=== PATIENT | female | born 1985 | race Two or more races ===

== ENCOUNTER 2016-05-13 07:15 | Inpatient (IN) | payer OTHER ==
--- NOTE | 2016-05-12 16:48 | PDOC1 ---
- HPI 30 year old at 40w+0d gestational age by LMP, confirmed with 8-week ultrasound who desires repeat LTCS for means of delivery due to history of prior LTCS. Patient also desires permanent sterlization by bilateral tubal ligation. She presents for assessment and review of history in anticipation of her upcoming surgery. Today patient denies any changes in health. Her course has been followed for the following problem list. Previous c/s x 1 (02/2015) for HSV lesions at term desires elective repeat c/s + BTL h/o HSV - on prophylaxis currently, no active HSV lesions h/o GDM - 1hr gtt high but 3hr gtt wnl this SOCIAL HISTORY: denies any alcohol, drugs, or tobacco use Allergies/Adverse Reactions: Allergies No Known Allergies Allergy (Verified 03/08/15 19:27) - Labs & Studies LABS: A-POS, AB NEG rubella immune HepB - neg HIV - neg RPR - neg 1hr gtt - 151, 3hr gtt wnl gbs negative REVIEW OF DATES: pt had 8w and 22w u/s which are c/w beni 05/20/16 - Physical Exam General: Afebrile, No Acute Distress Lungs: Clear to Auscultation Bilaterally Cardiovascular: Regular Rate and Rhythm Abdomen: Other (efw = 3500g), No Tenderness Genitourinary: Normal Female Genitalia, Other (no active lesions) - Assessment & Plan 30yo at term for elective repeat c/s + BTL Discussed with patient the risks of including infection, bleeding possibly requiring blood transfusion and even hysterectomy, damage to underlying structures including bowel, bladder, uterus, tubes, ovaries, baby, and ureter, as well as will have a scar and can have persistent pain and numbness at incision site. TheRisks of BTL including risk of regret, , and ectopic discussed. patient agrees to proceed with LTCS and BTL and will arrive at scheduled time for preop. She was advised to avoid any food or drink 8 hours prior to scheduled surgery.
[2016-05-13] MEDS ORDERED: LACTATED RINGERS 1,000 ML IV.SOLN ONE (07:16)
[2016-05-13] MEDS ORDERED: CEFAZOLIN SODIUM 2 GRAM DUPLEX 2 G in Premix (D5W) 50 ml 1 EACH IV PRN (07:17)
[2016-05-13] MEDS ORDERED: LACTATED RINGERS 1,000 ML IV SCH (07:30)
[2016-05-13] MEDS ORDERED: IV START KIT ONE (07:38)
[2016-05-13] MEDS ORDERED: LACTATED RINGERS 1,000 ML ONE (07:38)
[2016-05-13 08:20] LABS: HEMATOCRIT 38.4 % (37.0-47.0); HEMOGLOBIN 13.1 gm/l (12.0-16.0); MEAN CELL VOLUME 89.9 fl (81.0-99.0); MEAN CORPUSCULAR HEMOGLOBIN 30.7 pg (27.0-31.0); MEAN CORPUSCULAR HGB CONC 34.1 g/dl (33.0-37.0); RED CELL DISTRIBUTION WIDTH 13.6 % (11.5-14.5)
[2016-05-13 08:26] VITALS: BMI 40.9
[2016-05-13] MEDS ORDERED: CEFAZOLIN SODIUM 2 GRAM DUPLEX 50 ML IV ONE (08:41)
[2016-05-13] MEDS ORDERED: FENTANYL 100 MCG/2 ML VIAL ONE (09:34)
[2016-05-13] MEDS ORDERED: OXYTOCIN 10 UNITS/ML VIAL ONE (09:34)
[2016-05-13] MEDS ORDERED: EPHEDRINE SULFATE UD SYR 25 MG 25 MG/5 ML SYRINGE IV ONE (09:34)
[2016-05-13] MEDS ORDERED: MORPHINE SULFATE (DURAMORPH) 1 MG/ML 10ML AMP ONE (09:34)
[2016-05-13] MEDS ORDERED: SPINAL PROCEDURAL TRAY 1 EACH ONE (09:43)
[2016-05-13] MEDS ORDERED: BUPIVACAINE 0.75% SPINAL AMPUL 2 ML ONE (09:45)
[2016-05-13] MEDS ORDERED: DIPHENHYDRAMINE HCL 50 MG/1 ML VIAL IV PRN ×2 (10:00→11:08)
[2016-05-13] MEDS ORDERED: ONDANSETRON 4 MG/2ML 2 ML VIAL IV PRN ×2 (10:00→11:08)
[2016-05-13] MEDS ORDERED: MORPHINE SULFATE 2 MG/ML SYRINGE IV PRN (10:00)
[2016-05-13] MEDS ORDERED: MORPHINE SULFATE 10 MG/ML SYRINGE IV PRN (10:00)
[2016-05-13] MEDS ORDERED: EPHEDRINE SULFATE 50 MG/ML 1ML VIAL IV PRN (10:00)
[2016-05-13] MEDS ORDERED: NALOXONE HCL 0.4 MG/ML VIAL IV PRN (10:00)
[2016-05-13] MEDS ORDERED: HYDROMORPHONE HCL 1 MG/ML SYRINGE IV PRN (10:00)
[2016-05-13] MEDS ORDERED: PROMETHAZINE HCL 25 MG/ML VIAL IM PRN (10:00)
[2016-05-13] MEDS ORDERED: MORPHINE SULFATE 4 MG/ML SYRINGE IV PRN (10:00)
[2016-05-13] MEDS ORDERED: NALBUPHINE HCL 20 MG/ML AMP IV PRN (10:00)
[2016-05-13] MEDS ORDERED: HYDROMORPHONE HCL 2 MG/ML SYRINGE IV PRN (10:00)
[2016-05-13] MEDS ORDERED: KETOROLAC TROMETHAMINE 30 MG/ML 1 ML VIAL ONE (10:34)
[2016-05-13] MEDS ORDERED: KETOROLAC TROMETHAMINE 30 MG/ML 1 ML VIAL IV PRN (11:08)
[2016-05-13] MEDS ORDERED: DIPHENHYDRAMINE HCL 25 MG CAPSULE PO PRN (11:08)
[2016-05-13] MEDS ORDERED: LANOLIN 50 APPLIC/7G TUBE TP PRN (11:08)
--- NOTE | 2016-05-13 11:34 | OP ---
DAGOBERTO BAUTISTA [id number] DATE OF OPERATION: May 13, 2016 PREOPERATIVE DIAGNOSES: 1. Term . 2. Previous section times one. 3. Desires repeat section. 4. Desires permanent sterilization. POSTOPERATIVE DIAGNOSES: 1. Term . 2. Previous section times one. 3. Desires repeat section. 4. Desires permanent sterilization. OPERATION PERFORMED: REPEAT LOW-TRANSVERSE SECTION WITH BILATERAL TUBAL LIGATION. SURGEON: Lei Cruz M.D. MOVIE STUNT PERFORMER: Brian Fried M.D. ANESTHESIA: Spinal. ESTIMATED BLOOD LOSS: 600 mL. COMPLICATIONS: None. OPERATIVE FINDINGS: Include: 1. A live born baby female weighing 9 pounds 3 ounces with scores of 9 and 9 in cephalic presentation with meconium stained fluid. 2. The ovaries and tubes were normal bilaterally. DETAILS OF PROCEDURE: The patient was taken to the operating room and placed under spinal anesthesia. The patient was then prepped and draped in sterile fashion. Adequate anesthesia was confirmed. A Pfannenstiel incision was made and taken down to the level of the fascia. The fascia was incised transversely and dissected bilaterally off of the underlying rectus muscle. The rectus muscle was in the midline with a scalpel, and peritoneal cavity was entered with Taylor scissors and stretched. An Nehemias retractor was then placed. A transverse incision was made on the lower uterine segment. Prior to the incision, it was noted that the lower uterine segment was quite thin. The incision was then stretched bilaterally, and baby was then delivered and bulb suctioned. The shoulders were noted to be quite broad and did require rotation anteriorly to deliver both shoulders. Subsequently after delivery with brief delay of 30 seconds, the cord was clamped and cut, and the baby was taken to the warmer for the nursing staff. The placenta was then extracted manually and the uterus was cleared of all clots and membranes. The uterine incision was then closed with #0 Vicryl in a single layer in continuous fashion. There was good hemostasis observed. The right tube was grasped with Crandall clamp and a window was then made in the mesosalpinx. The proximal and distal aspects of the tube were then tied with #2-0 silk suture. The middle segment was then excised. The open aspects of the tube were then cauterized. There was good hemostasis observed. The left tube was then grasped with a Crandall clamp and a window was then made in the mesosalpinx. The proximal and distal aspects of the tube were tied with #2-0 silk suture and the middle segment was then excised. There was good hemostasis observed. The open aspects of the tube were then cauterized. The incision was again examined and found to be hemostatic. All laparotomy sponges were then removed. The peritoneum was then closed with #3-0 Vicryl in a continuous fashion. Rectus muscles were reapproximated with #3-0 Vicryl suture in interrupted sutures. The fascia was then closed with #0 Vicryl in a continuous fashion. The subcutaneous space was then reapproximated with Chromic suture and the skin was then closed with #3-0 Monocryl. The patient was then recovered from anesthesia and taken to the recovery room in stable condition.
[2016-05-13] MEDS: LACTATED RINGERS 1,000 ML IV SCH (12:20)
[2016-05-13] MEDS: KETOROLAC TROMETHAMINE 30 MG/ML 1 ML VIAL IV SCH (18:53)
[2016-05-14] MEDS: KETOROLAC TROMETHAMINE 30 MG/ML 1 ML VIAL IV SCH ×4 (03:40→11:20)
[2016-05-14] MEDS: LACTATED RINGERS 1,000 ML IV SCH ×4 (03:58→19:19)
[2016-05-14] MEDS: DOCUSATE SODIUM 100 MG CAPSULE PO SCH ×3 (03:58→22:16)
[2016-05-14 06:33] LABS: HEMATOCRIT 35.5 % (37.0-47.0); HEMOGLOBIN 11.9 gm/l (12.0-16.0)
[2016-05-14] MEDS: PRENATAL VIT/FE FUMARATE/FA 1 TABLET PO SCH (09:24)
[2016-05-14] MEDS: OXYCODONE/ACETAMINOPHEN 5/325 MG TABLET PO PRN ×3 (13:03→22:16)
[2016-05-14] MEDS: IBUPROFEN 800 MG TABLET PO PRN (17:58)
--- NOTE | 2016-05-14 18:42 | PDOC44 ---
- Subjective Day: 1 (RCS and BTL on 05/13/16 without complication.) 30yo para 3 now, experienced mom, already out of bed, up walking and caring for baby. Surgery was discussed and her questions were answered. Reports Pain Tolerable, Reports - Objective Temp Pulse Resp BP Pulse Ox 98.0 F 67 16 112/61 100 05/14/16 07:22 05/14/16 07:22 05/14/16 07:22 05/14/16 07:22 05/13/16 14:18 Lab Results 05/14/16 05/13/16 06:10 08:00 WBC 7.2 RBC 4.27 Hgb 11.9 L 13.1 Hct 35.5 L 38.4 Plt Count 206 Current Medications Generic Name Dose Route Start Last Admin Trade Name Freq PRN Reason Stop Dose Admin Diphenhydramine HCl 25 - 50 mg 05/13/16 11:08 Benadryl PO Q6H PRN Itching (Mild/Moderate) Diphenhydramine HCl 25 - 50 mg 05/13/16 11:08 Benadryl IV Q6H PRN Itching (Severe) Diphenhydramine HCl 25 - 50 mg 05/13/16 10:00 Benadryl IV 05/14/16 10:00 Q4H PRN Itching Docusate Sodium 100 mg 05/13/16 21:00 05/14/16 03:58 Colace PO Not Given BID [facility] Emollient Ointment 1 applic 05/13/16 11:08 [id number] TP PRN PRN sore nipples Ephedrine Sulfate 5 - 10 mg 05/13/16 10:00 Ephedrine Sulfate IV 05/14/16 10:00 Q5M PRN Hydromorphone HCl 0.5 - 2 mg 05/13/16 10:00 Dilaudid IV 05/14/16 10:00 Q1H PRN Pain (Breakthrough) Hydromorphone HCl 0.5 - 2 mg 05/13/16 10:00 Dilaudid IV 05/14/16 10:00 Q1H PRN Pain Lactated Ringer's 1,000 mls @ 125 mls/hr 05/13/16 11:08 05/14/16 03:59 Lactated Ringers IV Not Given .Q8H GLEN Ibuprofen 800 mg 05/13/16 11:08 Motrin PO Q6H PRN Pain Ketorolac Tromethamine 30 mg 05/13/16 11:08 Toradol IV Q6H PRN Pain (Mild/Moderate) Ketorolac Tromethamine 30 mg 05/13/16 16:30 05/14/16 04:54 Toradol IV 05/14/16 16:29 Not Given Q6H [facility] Morphine Sulfate 1 - 5 mg 05/13/16 10:00 Morphine Sulfate IV 05/14/16 10:00 Q1H PRN Pain (Breakthrough) Morphine Sulfate 1 - 5 mg 05/13/16 10:00 Morphine Sulfate IV 05/14/16 10:00 Q1H PRN Pain (Breakthrough) Morphine Sulfate 1 - 5 mg 05/13/16 10:00 Morphine Sulfate IV 05/14/16 10:00 Q1H PRN Pain (Breakthrough) Multivi/Iron Carb/Fe Sulf/FA/Prenat 1 tab 05/14/16 09:00 Plus PO DAILY [facility] Nalbuphine HCl 1 - 5 mg 05/13/16 10:00 Nubain IV 05/14/16 10:00 Q4H PRN Itching Naloxone HCl 0.2 - 0.4 mg 05/13/16 10:00 Narcan IV 05/14/16 10:00 Q5M PRN Ondansetron HCl 4 mg 05/13/16 11:08 Zofran IV Q6H PRN Nausea/Vomiting Ondansetron HCl 4 mg 05/13/16 10:00 Zofran IV 05/14/16 10:00 Q6H PRN Nausea/Vomiting Oxycodone/Acetaminophen 1 - 2 tab 05/13/16 11:08 Percocet 5/325 PO Q4H PRN Pain (Moderate) Promethazine HCl 6.25 - 12.5 mg 05/13/16 10:00 Phenergan IM 05/14/16 10:00 Q4H PRN Nausea/Vomiting Sodium Chloride 10 ml 05/13/16 11:08 05/14/16 03:40 Normal Saline 10ml Flush IV 10 ml PRN PRN Administration IV Flush Sodium Chloride 10 ml 05/13/16 17:00 05/14/16 03:59 Normal Saline 10ml Flush IV Not Given Q8HR [facility] - Physical Exam General: Afebrile Psych/Mental Status: Mood/Affect Appropriate, Bonding Well Neurological: Alert, Normal Speech Lungs: Clear to Auscultation Bilaterally Cardiovascular: Regular Rate and Rhythm Fundus: Firm, Below Umbilicus Abdomen: Normal Bowel Sounds, Mild Distention Lochia: Light Skin: Normal Color, Warm, Dry Wound BODY MAKER: Dressing Clean/Dry/Intact (Pt planning to shower tonight. Bandage will be removed after shower.) - Problems:Assessment/Plan (1) delivery delivered Status: Acute Assessment/Plan: Pt doing very well post-op. She is glad BTL was done. Disposition: Anticipate DC Home Tomorrow
[2016-05-15] MEDS: IBUPROFEN 800 MG TABLET PO PRN ×3 (01:57→20:13)
[2016-05-15] MEDS: OXYCODONE/ACETAMINOPHEN 5/325 MG TABLET PO PRN ×4 (02:08→20:13)
[2016-05-15] MEDS: DOCUSATE SODIUM 100 MG CAPSULE PO SCH ×3 (07:30→22:07)
[2016-05-15] MEDS: PRENATAL VIT/FE FUMARATE/FA 1 TABLET PO SCH ×2 (07:30→13:46)
--- NOTE | 2016-05-15 08:37 | PDOC44 ---
- Subjective Day: 2 Reports Flatus, Reports Pain Tolerable, Reports , Reports Lochia Light, Reports Tolerating Regular Diet, Denies Nausea, Denies Vomiting, Denies Fever - Objective Temp Pulse Resp BP Pulse Ox 98.4 F 71 18 114/64 100 05/15/16 07:25 05/15/16 07:25 05/15/16 07:25 05/15/16 07:25 05/13/16 14:18 Current Medications Generic Name Dose Route Start Last Admin Trade Name Freq PRN Reason Stop Dose Admin Diphenhydramine HCl 25 - 50 mg 05/13/16 11:08 Benadryl PO Q6H PRN Itching (Mild/Moderate) Diphenhydramine HCl 25 - 50 mg 05/13/16 11:08 Benadryl IV Q6H PRN Itching (Severe) Docusate Sodium 100 mg 05/13/16 21:00 05/15/16 07:30 Colace PO 100 mg BID GLEN Administration Emollient Ointment 1 applic 05/13/16 11:08 [id number] TP PRN PRN sore nipples Ibuprofen 800 mg 05/13/16 11:08 05/15/16 01:57 Motrin PO 800 mg Q6H PRN Administration Pain Ketorolac Tromethamine 30 mg 05/13/16 11:08 Toradol IV Q6H PRN Pain (Mild/Moderate) Multivi/Iron Carb/Fe Sulf/FA/Prenat 1 tab 05/14/16 09:00 05/15/16 07:30 Plus PO 1 tab DAILY GLEN Administration Ondansetron HCl 4 mg 05/13/16 11:08 Zofran IV Q6H PRN Nausea/Vomiting Oxycodone/Acetaminophen 1 - 2 tab 05/13/16 11:08 05/15/16 05:51 Percocet 5/325 PO 1 tab Q4H PRN Administration Pain (Moderate) Sodium Chloride 10 ml 05/13/16 11:08 05/14/16 09:23 Normal Saline 10ml Flush IV 10 ml PRN PRN Administration IV Flush Sodium Chloride 10 ml 05/13/16 17:00 05/15/16 02:08 Normal Saline 10ml Flush IV Not Given Q8HR GLEN - Physical Exam Fundus: Firm, At Umbilicus Abdomen: No Tenderness, No Distention Wound BUSINESS CONTROL SPECIALIST: Well Approximated, No Shadow Drainage, No Drainage, No Erythema, No Rash Disposition: Stable (doing well postoperatively. pt desires discharge tomorrow. )
--- NOTE | 2016-05-15 12:51 | SURGPATH ---
[facility] [address] [place] [id number] Patient Name: DAGOBERTO BAUTISTA MR#: [id number] : 1985 Gender: F Specimen #: [id number] Collected: 05/13/2016 Received: 05/14/2016 Reported: 05/15/2016 Submitting Phys: TESSY MILLAN Copy To Phys: [facility] Clinical History / Pre-Operative Diagnosis: Specimen Source / Surgical Procedure Performed: Bilateral fallopian tube segments Interpretation: BILATERAL FALLOPIAN TUBE, TUBAL LIGATION: - COMPLETE CROSS-SECTION OF 2 FALLOPIAN TUBES Electronically Signed Out Kai Jung M.D. Gross Description: The specimen is received in formalin labeled with the patient's name and". The specimen consists of two non-fimbriated 0.8-1 cm fallopian tubes. The sutured right tube is marked with black ink for identification. Submitted entirely in one cassette. RICK Godinez Microscopic Description: Microscopic performed. 1: 33162(2 Z30.2
[2016-05-16] MEDS: OXYCODONE/ACETAMINOPHEN 5/325 MG TABLET PO PRN ×2 (00:55→07:58)
--- NOTE | 2016-05-16 07:27 | PDOC39B ---
Hospital Course: ADMIT DATE: 05/13/16 DISCHARGE DATE: 05/16/16 ADMISSION DIAGNOSES: intrauterine at 39 weeks for repeat cesarian section and tubal ligation for multiparity PROCEDURES: repeat lower segment cesarian section with bilateral tubal ligation HISTORY OF PRESENT ILLNESS: 30 year old G3 T2 L2 at 39 weeks 0 days presenting for scheduled repeat lower segment cesarian section and tubal ligation HOSPITAL COURSE: The patient had an uneventful post operative course. By day of discharge the patient is ambulating, eating, voiding, and passing flatus without difficulty. Pain is controlled and lochia is appropriate. She is [] - Physical Exam Vital Signs: Temp Pulse Resp BP Pulse Ox 97.9 F 69 16 111/61 100 05/16/16 01:10 05/16/16 01:10 05/16/16 01:10 05/16/16 01:10 05/13/16 14:18 General: Afebrile, No Acute Distress Psych/Mental Status: Mood/Affect Appropriate, Judgment/Insight Intact, Bonding Well Lungs: Clear to Auscultation Bilaterally, Normal Air Movement Breast: Soft, Skin intact, Nipples Intact, No Tenderness, No Erythema, No Engorged Fundus: Firm, Midline, At Umbilicus, Other (nontender) Abdomen: Normal Bowel Sounds, Other (passed flatus, no bowel movement yet), No Tenderness, No Distention Genitourinary: Other (voiding without difficulty) Lochia: Light Extremities: No Tenderness Wound: Well Approximated, Other (nontender), No Drainage, No Erythema - Discharge Plan Condition: Stable Disposition: Home Additional Instructions: nothing in vagina x 6 weeks, office visit 05/20/[address] mallory, no heavy lifting x 6 weeks. Prescriptions: Ibuprofen [Motrin] 800 mg PO Q8H PRN #30 tablet PRN Reason: Pain Oxycodone HCl/Acetaminophen [PERCOCET 5/325 MG TABLET (SHF)] 1 - 2 tab PO Q4H PRN #14 tablet PRN Reason: Pain (Moderate)
[2016-05-16 07:54] VITALS: BP 126/68
[2016-05-16] MEDS: PRENATAL VIT/FE FUMARATE/FA 1 TABLET PO SCH (07:57)
[2016-05-16] MEDS: DOCUSATE SODIUM 100 MG CAPSULE PO SCH (07:57)
[2016-05-16] MEDS: IBUPROFEN 800 MG TABLET PO PRN (07:57)
== END 2016-05-16 12:20 | disposition home or self-care (01) | DRG 766 ==
LOC: FBC 07:15
PROVIDERS: ADMIT Obstetrics & Gynecology; ATTEND Obstetrics & Gynecology
PROC: 10D00Z1 Extraction of Products of Conception, Low, Open Approach (ICD-10-PCS; principal; 2016-05-13)
PROC: 0UL70ZZ Occlusion of Bilateral Fallopian Tubes, Open Approach (ICD-10-PCS; 2016-05-13)
DX: O34.211 Maternal care for low transverse scar from previous cesarean delivery (principal); Z3A.40 40 weeks gestation of pregnancy; Z37.0 Single live birth; Z30.2 Encounter for sterilization